=== PATIENT | male | born 1985 | race Caucasian/White ===

== ENCOUNTER → 2017-05-13 10:40 | Outpatient (CLI) | payer MEDICAID, SELFPAY ==
[2017-05-13 11:09] LABS: Strep Scrn Group A (Rapid) Negative (Negative)
== END ==
PROVIDERS: Visit Provider Internal Medicine Adolescent Medicine
DX: J02.9 Acute pharyngitis, unspecified (principal)
CPT/HCPCS: 87070; 87430